=== PATIENT | female | born 1945 | race Two or more races ===

== ENCOUNTER → 2020-03-25 | Outpatient (CLI) | payer OTHER, MEDICAID | LOC: LAB 12:17 | PROVIDERS: ATTEND Internal Medicine Gastroenterology | DX: Z01.812 Encounter for preprocedural laboratory examination (principal); Z20.828 Contact with and (suspected) exposure to other viral communicable diseases; R10.32 Left lower quadrant pain | CPT/HCPCS: U0003-CS ==

== ENCOUNTER → 2020-03-28 | Day surgery (SDC) | payer OTHER, MEDICAID ==
[~2020-03-28] MED LIST: IV RINGERS,LACTATED 1000ML 1,000 ML IV SCH; LIDOCAINE 2% PF 5 ML VIAL. ONE; PROPOFOL 10 MG/ML (20ML) VIAL. IV ONE
[2020-03-28 10:11] VITALS: BP 133/73
--- NOTE | 2020-04-01 13:08 | PATHOLOGY ---
[facility] Accession Number: [id number] . 01 Material submitted: . PART A: small bowel - SMALL BOWEL BX PART B: stomach - ANTRUM BODY BX PART C: esophagus - DISTAL ESOPHAGUS BX. Modifiers: distal PART D: esophagus - MID ESOPHAGUS BX. Modifiers: mid . 01 Clinical history: . LLQ PAIN, RECTAL BLEED CR . 02 Diagnosis: A. Small bowel, endoscopic biopsy: - Duodenal mucosa without significant pathologic alteration. . B. Stomach "antrum and body", endoscopic biopsy: - Gastric oxyntic mucosa with features of chemical gastritis (reactive gastropathy). - Negative for active inflammation, intestinal metaplasia, dysplasia, and malignancy. - Negative for Helicobacter pylori. . C. Esophagus "distal", endoscopic biopsy: - Esophageal squamous and gastric cardia mucosa with features of chronic esophagitis. - Negative for intestinal metaplasia, dysplasia, and malignancy. . D. Esophagus "mid esophagus", endoscopic biopsy: - Esophageal squamous mucosa without significant pathologic alteration. (MLK/db; 03/29/2020) [facility] 04/01/2020 1203 Local . 02 Electronically signed: . Blanca Locke MD, Pathologist NPI- [id number] . 01 Gross description: . A. Received in formalin labeled "Aldridge, Radha, small bowel BX" are multiple bass-brown soft tissue fragments measuring in aggregate 1.3 x 0.3 x 0.1 cm. The specimen is submitted entirely in A1. . B. Received in formalin labeled "Aldridge, Radha, antrum body BX" are multiple bass-brown soft tissue fragments measuring in aggregate 0.8 x 0.6 x 0.1 cm. The specimen is submitted entirely in B1. . C. Received in formalin labeled "Aldridge, Radha, distal esophagus BX" are multiple bass-brown soft tissue fragments measuring in aggregate 0.9 x 0.4 x 0.1 cm. The specimen is submitted entirely in C1. . D. Received in formalin labeled "Radha Aldridge, mid esophagus BX" are multiple bass-brown soft tissue fragments measuring in aggregate 0.5 x 0.3 x 0.1 cm. The specimen is submitted entirely in D1. ([facility] [place]; 03/28/2020) [facility] 03/28/2020 1841 Local . 02 Microscopic: . Immunohistochemical stain results (properly controlled) . Helicobacter pylori (block B1) - Negative for organisms . 02 Pathologist provided ICD-10: R10.32, K62.5 . 02 CPT . 729062, 879048, 638377, 906396, [id number] Specimen Comment: A courtesy copy of this report has been sent to [phone], [phone] Specimen Comment: [phone] Specimen Comment: Report sent to / DR WU Performed at: [address] [facility], [place] [id number] MD Osmin Sam MD Phone: [phone] Performed at: [address] [facility] [id number] MD Sia Sheffield MD Phone: [phone]
== END ==
LOC: ENDOS 08:01
PROVIDERS: ATTEND Internal Medicine Gastroenterology
DX: R10.12 Left upper quadrant pain (principal); K62.5 Hemorrhage of anus and rectum; K64.0 First degree hemorrhoids; K57.30 Diverticulosis of large intestine without perforation or abscess without bleeding; K22.70 Barrett's esophagus without dysplasia; K44.9 Diaphragmatic hernia without obstruction or gangrene; K31.89 Other diseases of stomach and duodenum; K21.00 Gastro-esophageal reflux disease with esophagitis, without bleeding; K29.70 Gastritis, unspecified, without bleeding; Z98.890 Other specified postprocedural states; Z79.899 Other long term (current) drug therapy
CPT/HCPCS: 43239; 45378; 88305; 88342; J2704